=== PATIENT | male | born 1960 | race African-American/Black ===

== ENCOUNTER 2016-07-02 19:10 | Emergency (ER) | payer MEDICARE, MEDICAID ==
[~2016-07-02] VITALS: Ht 180.3 cm; Wt 89.4 kg
[~2016-07-02 19:10] MED LIST: ATEN50TA PO; GLIP1TAB6 PO; [UNRECOGNIZED DRUG - REMARK]
[2016-07-02 19:59] LABS: BASOPHILS # (AUTO) 0.2 /CMM (0.0-0.2); BASOPHILS % (AUTO) 3.4 % (0.0-2.0); DIFF TOTAL % 100 %; EOSINOPHILS % (AUTO) 0.9 % (0.0-6.0); HEMATOCRIT 43 % (39-51); HEMOGLOBIN 14.1 g/dL (13.5-17.5); LYMPHOCYTES # (AUTO) 1.7 /CMM (0.8-4.8); LYMPHOCYTES % (AUTO) 32.9 % (20.0-44.0); MEAN CORPUSCULAR HEMOGLOBIN 30 PG (26.0-33.0); MEAN CORPUSCULAR HGB CONC 33 g/dl (31.0-36.0); MEAN CORPUSCULAR VOLUME 90 fL (80-96); MONOCYTES # (AUTO) 0.6 /CMM (0.1-1.30); MONOCYTES % (AUTO) 12.4 % (2.0-12.0); NEUTROPHILS # (AUTO) 2.6 /CMM (1.8-8.9); NEUTROPHILS % (AUTO) 50.4 % (43.0-81.0); PLATELET COUNT (AUTO) 169 /CMM (150-450); RED BLOOD CELL COUNT(AUTO) 4.71 MIL/uL (4.5-6.0); WHITE BLOOD COUNT (AUTO) 5.1 K/uL (4.3-11.0)
[2016-07-02 20:07] LABS: CALCIUM, SERUM 8.2 mg/dL (8.5-10.1); CREATININE 1.4 mg/dL (0.6-1.3); POTASSIUM 3.6 mmol/L (3.5-5.1)
[2016-07-02 20:13] LABS: ALBUMIN 3.7 g/dL (3.4-5.0); BILIRUBIN,DIRECT 0.1 mg/dL (0.0-0.2); BILIRUBIN,TOTAL 0.2 mg/dL (0.2-1.0); INDIRECT BILIRUBIN 0.1 mg/dL (0.0-1.1); TOTAL PROTEIN, SERUM 7.4 g/dL (6.4-8.2)
[2016-07-02 20:14] LABS: TROPONIN I 0.019 ng/mL (0.00-0.056)
[2016-07-02 20:25] LABS: INR 0.96 (0.87-1.13); PROTHROMBIN TIME 10.4 SECS (9.5-12.7)
[2016-07-02 21:51] VITALS: BP 132/91
== END 2016-07-02 21:52 | disposition home or self-care (01) ==
LOC: ER 19:14
DX: S29.011A Strain of muscle and tendon of front wall of thorax, initial encounter (principal); E11.9 Type 2 diabetes mellitus without complications; F10.20 Alcohol dependence, uncomplicated; F17.210 Nicotine dependence, cigarettes, uncomplicated; F32.9 Major depressive disorder, single episode, unspecified; X58.XXXA Exposure to other specified factors, initial encounter; Y93.89 Activity, other specified; Y92.89 Other specified places as the place of occurrence of the external cause; Y99.8 Other external cause status
CPT/HCPCS: 36415; 71010; 80048; 80076; 84484; 85025; 85730; 93005; 99285; A4606; Z7610

== ENCOUNTER 2017-08-01 19:33 | Emergency (ER) | payer MEDICARE, MEDICAID ==
[~2017-08-01] VITALS: Ht 177.8 cm; Wt 93.0 kg
[2017-08-01 20:06] VITALS: BP 182/106
--- NOTE | 2017-08-01 20:51 | NUR ---
GOT REPORT FROM RUDI. ASSUMED CARE OF PATIENT CARE.
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
[2017-08-01] MEDS ORDERED: FLUORESCEIN SODIUM OPHTH 1 EA STRIP ONE (21:22)
[2017-08-01] MEDS ORDERED: TETRACAINE HCL/PF 0.5% UD 2 ML BOTTLE ONE (21:23)
[2017-08-01] MEDS ORDERED: IBUPROFEN 600 MG TABLET PO ONE ×2 (21:23→21:30)
--- NOTE | 2017-08-01 21:26 | NUR ---
PT REFUSED MOTRIN 600MG. PT STATES HE TOOK MOTRIN 800MG PRIOR TO ARIVAL TO ER.
[2017-08-01] MEDS ORDERED: TETRACAINE HCL/PF 0.5% UD 2 ML BOTTLE RIGHTEYE ONE (21:30)
[2017-08-01] MEDS ORDERED: FLUORESCEIN SODIUM OPHTH 1 EA STRIP OP ONE (21:30)
--- NOTE | 2017-08-01 21:47 | NUR ---
PT LEFT STATING "I WANT TO SEE MY OWN DOCTOR"
== END 2017-08-01 21:49 | disposition left against medical advice (07) ==
LOC: ER 19:40
DX: H57.8 Other specified disorders of eye and adnexa (principal); E11.9 Type 2 diabetes mellitus without complications; F32.9 Major depressive disorder, single episode, unspecified; F20.9 Schizophrenia, unspecified; F10.10 Alcohol abuse, uncomplicated; F17.200 Nicotine dependence, unspecified, uncomplicated; Z79.84 Long term (current) use of oral hypoglycemic drugs
CPT/HCPCS: A4606; Z7610